=== PATIENT | male | born 1995 | race American Indian/Alaskan Native ===

== ENCOUNTER 2017-05-27 10:15 | Emergency (ER) | payer SELFPAY ==
[2017-05-27 11:07] VITALS: BP 111/78
[2017-05-27 11:56] LABS: Basophils # (Auto) 0.1 K/mm3 (0.0-0.1); Basophils % (Auto) 1.1 % (0.0-1.8); Eosinophils # (Auto) 0.1 K/mm3 (0.0-0.4); Eosinophils % (Auto) 1.9 % (0.0-4.3); Hematocrit 43.4 % (35.5-45.6); Hemoglobin 14.4 gm/dl (11.8-15.2); Lymphocytes # (Auto) 1.2 K/mm3 (1.2-5.4); Lymphocytes % (Auto) 22.6 % (13.4-35.0); Mean Corpuscular HGB Conc 33 % (32-34); Mean Corpuscular Hemoglobin 29 pg (28-32); Mean Corpuscular Volume 87 fl (84-94); Monocytes # (Auto) 0.6 K/mm3 (0.0-0.8); Monocytes % (Auto) 11.1 % (0.0-7.3); Platelet Count 278 K/mm3 (140-440); Red Blood Count 5.01 M/mm3 (3.65-5.03)
[2017-05-27 12:10] LABS: Alanine Aminotransferase 13 units/L (7-56); Albumin 4.3 g/dL (3.9-5); BUN/Creatinine Ratio 15; Blood Urea Nitrogen 12 mg/dL (9-20); Calcium 9.5 mg/dL (8.4-10.2); Hemolysis Index 11; Lipase 27 units/L (13-60)
[2017-05-27 14:28] LABS: Bilirubin,Urine SM (Negative); Blood,Urine NEG (Negative); Color,Urine Amber (Yellow); Mucus,Urine 3+ /HPF
[2017-05-27 14:29] LABS: Ictotest,Urine Negative (Negative)
== END 2017-05-27 14:15 | disposition left against medical advice (07) ==
LOC: ED 10:15
DX: R11.2 Nausea with vomiting, unspecified (principal); Z53.21 Procedure and treatment not carried out due to patient leaving prior to being seen by health care provider
CPT/HCPCS: 36415; 80053; 81001; 83690; 85025

== ENCOUNTER 2017-07-09 12:31 | Emergency (ER) | payer SELFPAY | END 2017-07-09 12:32 | disposition left against medical advice (07) | LOC: ED 12:31 | DX: R10.9 Unspecified abdominal pain (principal); Z53.21 Procedure and treatment not carried out due to patient leaving prior to being seen by health care provider ==

== ENCOUNTER 2017-09-02 03:46 | Inpatient (IN) | payer OTHER ==
[2017-09-02 04:42] LABS: Basophils # (Auto) 0.1 K/mm3 (0.0-0.1); Basophils % (Auto) 0.9 % (0.0-1.8); Eosinophils # (Auto) 0.2 K/mm3 (0.0-0.4); Eosinophils % (Auto) 2.8 % (0.0-4.3); Hematocrit 52.1 % (35.5-45.6); Hemoglobin 17.7 gm/dl (11.8-15.2); Lymphocytes # (Auto) 1.8 K/mm3 (1.2-5.4); Lymphocytes % (Auto) 29.6 % (13.4-35.0); Mean Corpuscular HGB Conc 34 % (32-34); Mean Corpuscular Hemoglobin 29 pg (28-32); Mean Corpuscular Volume 87 fl (84-94); Monocytes # (Auto) 0.7 K/mm3 (0.0-0.8); Monocytes % (Auto) 11.9 % (0.0-7.3); Platelet Count 368 K/mm3 (140-440); Red Blood Count 6.02 M/mm3 (3.65-5.03); Red Cell Distribution Width 13.3 % (13.2-15.2)
[2017-09-02] MEDS ORDERED: ZOFRAN IV ONE (05:05)
[2017-09-02] MEDS ORDERED: NACL 0.9% 1000 ML 1,000 ML IV ONE ×3 (05:05→11:04)
[2017-09-02 05:06] LABS: Alanine Aminotransferase 15 units/L (7-56); Albumin 4.9 g/dL (3.9-5); BUN/Creatinine Ratio 22; Blood Urea Nitrogen 20 mg/dL (9-20); Calcium 10.1 mg/dL (8.4-10.2); Hemolysis Index 10; Lipase 20 units/L (13-60)
[2017-09-02] MEDS ORDERED: K-DUR PO ONE (05:17)
[2017-09-02] MEDS ORDERED: PEPCID IV ONE (05:17)
[2017-09-02] MEDS ORDERED: REGLAN ONE (07:34)
[2017-09-02] MEDS ORDERED: REGLAN IV ONE (07:34)
--- NOTE | 2017-09-02 07:56 | Emergency Department Report ---
HPI - General Chief Complaint: Nausea/Vomiting/Diarrhea Time Seen by Provider: 09/02/17 07:26 - HPI HPI: Room 8 The patient is a 22-year-old male presenting with a chief complaint of nausea and vomiting. The patient states 2 weeks ago after eating a hotdog from and began having nausea and vomiting. The patient states she's been vomiting 10-15 times today he has abdominal soreness of his vomiting. The patient states she has not had a bowel movement in 2 weeks because he's been unable to eat. The patient states he went to [facility] and had an abdominal ultrasound, abdominal CT scan and abdominal x-ray performed which were all negative per patient. Patient denies dysuria. Patient denies sick contacts. The patient was administered Zofran prior to my evaluation states he still had nausea and vomiting. Location: Gastrointestinal system Duration: 2 weeks Quality: Vomiting Severity: Moderate Modifying factors: [see above] Context: [see above] Mode of transportation: Unknown ED Past Medical Hx - Past Medical History Previous Medical History?: No - Surgical History Past Surgical History?: No - Family History Family history: no significant - Social History Smoking Status: Never Smoker Substance Use Type: None (denies illicit drug use) - Medications Home Medications: Home Medications Medication Instructions Recorded Confirmed Last Taken Type Acetaminophen/Codeine [Tylenol #3] 1 tab PO Q6H PRN #15 tab 06/23/15 Unknown Rx methOCARBAMOL [Robaxin TAB] 500 mg PO BID #20 tab 06/23/15 Unknown Rx ED Review of Systems ROS: Stated complaint: CHEST PAIN,NAUSEA,VOMITING Other details as noted in HPI Constitutional: chills Eyes: denies: eye pain ENT: denies: throat pain Cardiovascular: denies: chest pain Gastrointestinal: abdominal pain (soreness from vomiting), nausea, vomiting Genitourinary: denies: dysuria Musculoskeletal: denies: back pain Neurological: denies: headache Physical Exam - Physical Exam Vital Signs: Vital Signs 09/02/17 09/02/17 09/02/17 04:07 04:41 04:45 Temperature 98.2 F Pulse Rate 117 H Respiratory 18 Rate Blood Pressure 125/87 O2 Sat by Pulse 100 100 99 Oximetry 09/02/17 09/02/17 09/02/17 05:00 05:15 05:30 Temperature Pulse Rate Respiratory Rate Blood Pressure 128/94 128/94 112/76 O2 Sat by Pulse 100 97 97 Oximetry 09/02/17 05:43 Temperature Pulse Rate Respiratory 20 Rate Blood Pressure O2 Sat by Pulse Oximetry Physical Exam: GENERAL: The patient is well-developed well-nourished male lying on stretcher not appearing to be in acute distress. [] HEENT: Normocephalic. Atraumatic. Extraocular motions are intact. Patient has moist mucous membranes. NECK: Supple. Trachea midline CHEST/LUNGS: Clear to auscultation. There is no respiratory distress noted. HEART/CARDIOVASCULAR: Regular. There is no tachycardia. There is no gallop rub or murmur. ABDOMEN: Abdomen is soft, mild discomfort to palpation in the midepigastric and left upper quadrant. Patient has normal bowel sounds. There is no abdominal distention. SKIN: There is no rash. There is no edema. There is no diaphoresis. NEURO: The patient is awake, alert, and oriented. The patient is cooperative. The patient has normal speech MUSCULOSKELETAL: There is no evidence of acute injury. ED Course Vital Signs 09/02/17 09/02/17 09/02/17 04:07 04:41 04:45 Temperature 98.2 F Pulse Rate 117 H Respiratory 18 Rate Blood Pressure 125/87 O2 Sat by Pulse 100 100 99 Oximetry 09/02/17 09/02/17 09/02/17 05:00 05:15 05:30 Temperature Pulse Rate Respiratory Rate Blood Pressure 128/94 128/94 112/76 O2 Sat by Pulse 100 97 97 Oximetry 09/02/17 05:43 Temperature Pulse Rate Respiratory 20 Rate Blood Pressure O2 Sat by Pulse Oximetry - Reevaluation(s) Reevaluation #1: 09/02/17 11:03 Patient states he still feels nauseous and is pretty sure it is going to have to vomit soon despite multiple medications. Will admit the patient to the hospital ED Medical Decision Making - Lab Data Result diagrams: 09/02/17 04:34 09/02/17 04:34 Laboratory Tests 09/02/17 09/02/17 09/02/17 04:34 04:34 05:00 WBC 6.1 RBC 6.02 H Hgb 17.7 H Hct 52.1 H MCV 87 MCH 29 MCHC 34 RDW 13.3 Plt Count 368 Lymph % (Auto) 29.6 [place] % (Auto) 11.9 H Eos % (Auto) 2.8 Baso % (Auto) 0.9 Lymph # 1.8 [place] # 0.7 Eos # 0.2 Baso # 0.1 Seg Neutrophils % 54.8 Seg Neutrophils # 3.4 Sodium 134 L Potassium 3.2 L Chloride 88.2 L Carbon Dioxide 29 Anion Gap 20 BUN 20 Creatinine 0.9 Estimated GFR > 60 BUN/Creatinine Ratio 22 Glucose 129 H Calcium 10.1 Magnesium 2.40 H Total Bilirubin 1.70 H AST 13 ALT 15 Alkaline Phosphatase 58 Total Protein 8.5 H Albumin 4.9 Albumin/Globulin Ratio 1.4 Lipase 20 Urine Color Urine Turbidity Urine pH Ur Specific [place] Urine Protein Urine Glucose (UA) Urine Ketones Urine Blood Urine Nitrite Urine Bilirubin Urine Ictotest Urine Urobilinogen Ur Leukocyte Esterase Urine WBC (Auto) Urine RBC (Auto) Urine Mucus 09/02/17 08:25 WBC RBC Hgb Hct MCV MCH MCHC RDW Plt Count Lymph % (Auto) [place] % (Auto) Eos % (Auto) Baso % (Auto) Lymph # [place] # Eos # Baso # Seg Neutrophils % Seg Neutrophils # Sodium Potassium Chloride Carbon Dioxide Anion Gap BUN Creatinine Estimated GFR BUN/Creatinine Ratio Glucose Calcium Magnesium Total Bilirubin AST ALT Alkaline Phosphatase Total Protein Albumin Albumin/Globulin Ratio Lipase Urine Color [place] Urine Turbidity Clear Urine pH 6.0 Ur Specific [place] 1.034 H Urine Protein 100 mg/dl Urine Glucose (UA) Neg Urine Ketones 20 Urine Blood Neg Urine Nitrite Neg Urine Bilirubin Sm Urine Ictotest Negative Urine Urobilinogen 4.0 Ur Leukocyte Esterase Tr Urine WBC (Auto) 6.0 Urine RBC (Auto) 4.0 Urine Mucus 3+ - EKG Data -: EKG Interpreted by Me EKG shows normal: sinus rhythm Rate: tachycardia (102 bpm) - EKG Data When compared to previous EKG there are: previous EKG unavailable Interpretation: other (no ischemic changes seen) - Medical Decision Making Patient has already had a CT scan of the abdomen, ultrasound and plain film x- ray performed for the above complaints. These were reportedly negative and I currently do not feel repeat imaging is warranted or would be useful at this time. - Differential Diagnosis gastritis, peptic ulcer disease, intractable nausea and vomiting Critical care attestation.: If time is entered above; I have spent that time in minutes in the direct care of this critically ill patient, excluding procedure time. ED Disposition Clinical Impression: Intractable nausea and vomiting, Dehydration Disposition: DC09 OP ADMIT IP TO THIS HOSP Is pt being admited?: Yes Does the pt Need Aspirin: No Condition: Fair Referrals: PRIMARY CARE, [Primary Care Provider] - 3-5 Days Time of Disposition: 11:04 (hospitalist paged (Dr Knowles))
[2017-09-02 09:13] LABS: Bilirubin,Urine SM (Negative); Blood,Urine NEG (Negative); Color,Urine Amber (Yellow); Mucus,Urine 3+ /HPF
[2017-09-02] MEDS ORDERED: PHENERGAN PR ONE (09:14)
[2017-09-02 09:53] LABS: Ictotest,Urine Negative (Negative)
--- NOTE | 2017-09-02 18:32 | History and Physical Report ---
History of Present Illness Date of examination: 09/02/17 Date of admission: 09/02/17 12:23 Chief complaint: CC Vomiting for 2 weeks.Associated with Abd pain. History of present illness: LAC VIEUX: The patient is a 22-year-old male presenting with a chief complaint of nausea and vomiting. The patient states 2 weeks ago after eating a hotdog from [employer] began having nausea and vomiting. The patient states he's been vomiting 10-15 times and has abdominal soreness because of his vomiting. The patient states he has not had a bowel movement in 2 weeks because he's been unable to eat. The patient states he went to [facility] and had an abdominal ultrasound, abdominal CT scan and abdominal x-ray performed which were all negative per patient. Patient denies dysuria. Patient denies sick contacts. The patient was administered Zofran prior to my evaluation states he still had nausea and vomiting. Has persistent vomiting Location: Gastrointestinal system Duration: 2 weeks Quality: Vomiting Severity: Moderate Modifying factors: [see above] Context: [see above] Past Medical History Previous Medical History?: No Surgical History Past Surgical History?: No Family History Family history: no significant Social History Smoking Status: Never Smoker Substance Use Type: None (denies illicit drug use) - Medications Home Medications: Home Medications Medication Instructions Recorded Confirmed Last Taken Type Acetaminophen/Codeine [Tylenol #3] 1 tab PO Q6H PRN #15 tab 06/23/15 Unknown Rx methOCARBAMOL [Robaxin TAB] 500 mg PO BID #20 tab 06/23/15 Unknown Rx Review of Systems ROS: Stated complaint: CHEST PAIN,NAUSEA,VOMITING Other details as noted in HPI Constitutional: chills Eyes: denies: eye pain ENT: denies: throat pain Cardiovascular: denies: chest pain Gastrointestinal: abdominal pain (soreness from vomiting), nausea, vomiting X 10 to 14 times per day Genitourinary: denies: dysuria Musculoskeletal: denies: back pain Neurological: denies: headache 14 point review of systems done--otherwise negative Medications and Allergies Allergies Allergy/AdvReac Type Severity Reaction Status Date / Time No Known Allergies Allergy Unverified 06/22/15 18:00 Home Medications Medication Instructions Recorded Confirmed Last Taken Type Acetaminophen/Codeine [Tylenol #3] 1 tab PO Q6H PRN #15 tab 16 09/02/17 Unknown Rx methOCARBAMOL [Robaxin TAB] 500 mg PO BID #20 tab 06/23/15 09/02/17 Unknown Rx Exam - Physical Exam Narrative exam: lying in bed comfortably - Constitutional Vitals: Temp Pulse Resp BP Pulse Ox 100.1 F H 80 20 124/78 98 09/02/17 17:18 09/02/17 17:18 09/02/17 17:18 09/02/17 17:18 09/02/17 17:18 General appearance: Present: no acute distress, well-nourished - EENT Eyes: Present: PERRL ENT: hearing intact, clear oral mucosa - Neck Neck: Present: supple, normal ROM - Respiratory Respiratory effort: normal Respiratory: bilateral: CTA - Cardiovascular Heart rate: 102 Rhythm: regular Heart Sounds: Present: S1 & S2. Absent: rub, click - Extremities Extremities: no ischemia, pulses intact, pulses symmetrical, No edema Peripheral Pulses: within normal limits - Abdominal General gastrointestinal: Present: soft, non-tender, non-distended, normal bowel sounds Male genitourinary: Present: normal - Rectal Rectal Exam: deferred - Integumentary Integumentary: Present: clear, warm, dry - Musculoskeletal Musculoskeletal: gait normal, strength equal bilaterally - Psychiatric Psychiatric: appropriate mood/affect, intact judgment & insight - Neurologic Neurologic: CNII-XII intact, moves all extremities - Allied Health Allied health notes reviewed: nursing, case management Results - Labs CBC & Chem 7: 09/02/17 04:34 09/02/17 04:34 Labs: Laboratory Last Values WBC 6.1 K/mm3 (4.5-11.0) 09/02/17 04:34 RBC 6.02 M/mm3 (3.65-5.03) H 09/02/17 04:34 Hgb 17.7 gm/dl (11.8-15.2) H 09/02/17 04:34 Hct 52.1 % (35.5-45.6) H 09/02/17 04:34 MCV 87 fl (84-94) 09/02/17 04:34 MCH 29 pg (28-32) 09/02/17 04:34 MCHC 34 % (32-34) 09/02/17 04:34 RDW 13.3 % (13.2-15.2) 09/02/17 04:34 Plt Count 368 K/mm3 (140-440) 09/02/17 04:34 Lymph % (Auto) 29.6 % (13.4-35.0) 09/02/17 04:34 [place] % (Auto) 11.9 % (0.0-7.3) H 09/02/17 04:34 Eos % (Auto) 2.8 % (0.0-4.3) 09/02/17 04:34 Baso % (Auto) 0.9 % (0.0-1.8) 09/02/17 04:34 Lymph # 1.8 K/mm3 (1.2-5.4) 09/02/17 04:34 [place] # 0.7 K/mm3 (0.0-0.8) 09/02/17 04:34 Eos # 0.2 K/mm3 (0.0-0.4) 09/02/17 04:34 Baso # 0.1 K/mm3 (0.0-0.1) 09/02/17 04:34 Seg Neutrophils % 54.8 % (40.0-70.0) 09/02/17 04:34 Seg Neutrophils # 3.4 K/mm3 (1.8-7.7) 09/02/17 04:34 Sodium 134 mmol/L (137-145) L 09/02/17 04:34 Potassium 3.2 mmol/L (3.6-5.0) L 09/02/17 04:34 Chloride 88.2 mmol/L (98-107) L 09/02/17 04:34 Carbon Dioxide 29 mmol/L (22-30) 09/02/17 04:34 Anion Gap 20 mmol/L 09/02/17 04:34 BUN 20 mg/dL (9-20) 09/02/17 04:34 Creatinine 0.9 mg/dL (0.8-1.5) 09/02/17 04:34 Estimated GFR > 60 ml/min 09/02/17 04:34 BUN/Creatinine Ratio 22 % 09/02/17 04:34 Glucose 129 mg/dL (75-100) H 09/02/17 04:34 Calcium 10.1 mg/dL (8.4-10.2) 09/02/17 04:34 Magnesium 2.40 mg/dL (1.7-2.3) H 09/02/17 05:00 Total Bilirubin 1.70 mg/dL (0.1-1.2) H 09/02/17 04:34 AST 13 units/L (5-40) 09/02/17 04:34 ALT 15 units/L (7-56) 09/02/17 04:34 Alkaline Phosphatase 58 units/L (35-129) 09/02/17 04:34 Total Protein 8.5 g/dL (6.3-8.2) H 09/02/17 04:34 Albumin 4.9 g/dL (3.9-5) 09/02/17 04:34 Albumin/Globulin Ratio 1.4 % 09/02/17 04:34 Lipase 20 units/L (13-60) 09/02/17 04:34 Urine Color Maureen (Yellow) 09/02/17 08:25 Urine Turbidity Clear (Clear) 09/02/17 08:25 Urine pH 6.0 (5.0-7.0) 09/02/17 08:25 Ur Specific [place] 1.034 (1.003-1.030) H 09/02/17 08:25 Urine Protein 100 mg/dl mg/dL (Negative) 09/02/17 08:25 Urine Glucose (UA) Neg mg/dL (Negative) 09/02/17 08:25 Urine Ketones 20 mg/dL (Negative) 09/02/17 08:25 Urine Blood Neg (Negative) 09/02/17 08:25 Urine Nitrite Neg (Negative) 09/02/17 08:25 Urine Bilirubin Sm (Negative) 09/02/17 08:25 Urine Ictotest Negative (Negative) 09/02/17 08:25 Urine Urobilinogen 4.0 mg/dL (<2.0) 09/02/17 08:25 Ur Leukocyte Esterase Tr (Negative) 09/02/17 08:25 Urine WBC (Auto) 6.0 /HPF (0.0-6.0) 09/02/17 08:25 Urine RBC (Auto) 4.0 /HPF (0.0-6.0) 09/02/17 08:25 Urine Mucus 3+ /HPF 09/02/17 08:25 Assessment and Plan Advance Directives: Yes (Full code) VTE prophylaxis?: Chemical Plan of care discussed with patient/family: Yes - Patient Problems (1) Dehydration Current Visit: Yes Status: Acute Plan to address problem: IV Fluids for now Patient has hemoconcentration and is volume depleted (2) Intractable nausea and vomiting Current Visit: Yes Status: Acute Qualifiers: Vomiting type: unspecified Qualified Code(s): R11.2 - Nausea with vomiting , unspecified Plan to address problem: Etiology unclear Imaging studies ordered Patient had imaging studies at [facility] and apparently normal IV protonix 40 mg q12h IV Zofran 4 mg q 3h prn (3) Acute gastritis without bleeding Current Visit: Yes Status: Acute Qualifiers: Gastritis type: unspecified gastritis Qualified Code(s): K29.00 - Acute gastritis without bleeding Plan to address problem: GI consuulted Possible EGD IV Protonix and IV Zofran (4) Hypokalemia Current Visit: Yes Status: Acute Plan to address problem: Supplemented (5) DVT prophylaxis Current Visit: Yes Status: Acute Plan to address problem: Lovenox 40 mg SQ qd
[2017-09-02] MEDS ORDERED: ZOFRAN IV PRN ×2 (19:12→19:34)
[2017-09-02] MEDS ORDERED: SODIUM CHLORIDE FLUSH SYRINGE 10 ML IV PRN (19:12)
[2017-09-02] MEDS ORDERED: TYLENOL PO PRN (19:12)
[2017-09-02] MEDS ORDERED: MORPHINE IV PRN (19:12)
[2017-09-02] MEDS ORDERED: PHENERGAN PR PRN (19:42)
--- NOTE | 2017-09-02 20:14 | XRay Report ---
FINAL REPORT PROCEDURE: XR ABDOMEN 2V TECHNIQUE: Abdominal series, including supine and upright AP views. HISTORY: Abd pain and vomiting COMPARISON: No prior studies are available for comparison. FINDINGS: Bowel gas pattern:Nonobstructive . Masses or calcifications:None . Bony structures:No significant abnormality . Pneumoperitoneum:None . Other:No significant findings . IMPRESSION: No acute abnormality.
[2017-09-02] MEDS: D5NS 1,000 ML IV SCH (20:35)
[2017-09-02] MEDS: KCL 10MEQ/100ML 10 MEQ/100 ML BAG IV SCH (20:35)
[2017-09-02] MEDS: SODIUM CHLORIDE FLUSH SYRINGE 10 ML IV SCH (22:15)
[2017-09-02] MEDS: PROTONIX IV SCH (22:15)
--- NOTE | 2017-09-03 00:01 | Cat Scan Report ---
FINAL REPORT PROCEDURE: CT ABDOMEN PELVIS WO CON TECHNIQUE: Computerized axial tomography of the abdomen and pelvis was performed without intravenous contrast. HISTORY: Abd pain and vomiting COMPARISON: No prior studies are available for comparison. FINDINGS: Visualized lower thorax: No significant abnormality. Liver: Normal size and attenuation. Spleen: Normal size and attenuation. Gallbladder and biliary system: Normal. Pancreas: Normal. Adrenals: Normal. Kidneys: Normal. No stones or hydronephrosis. GI tract: Normal. No dilated loops of large or small bowel. The appendix is normal. Lymph nodes and mesentery: Normal. Vasculature: Normal. Bladder: Normal. Reproductive organs: Normal. Peritoneum: No free fluid. Musculoskeletal structures: No significant abnormality. Other: None. IMPRESSION: Normal examination of the abdomen and pelvis.
[2017-09-03] MEDS: KCL 10MEQ/100ML 10 MEQ/100 ML BAG IV SCH ×3 (00:21→02:14)
[2017-09-03 09:18] LABS: Basophils # (Auto) 0.1 K/mm3 (0.0-0.1); Basophils % (Auto) 1.8 % (0.0-1.8); Eosinophils # (Auto) 0.2 K/mm3 (0.0-0.4); Eosinophils % (Auto) 5.3 % (0.0-4.3); Hematocrit 39.5 % (35.5-45.6); Hemoglobin 13.1 gm/dl (11.8-15.2); Lymphocytes # (Auto) 1.7 K/mm3 (1.2-5.4); Lymphocytes % (Auto) 41.2 % (13.4-35.0); Mean Corpuscular HGB Conc 33 % (32-34); Mean Corpuscular Hemoglobin 29 pg (28-32); Mean Corpuscular Volume 87 fl (84-94); Monocytes # (Auto) 0.6 K/mm3 (0.0-0.8); Monocytes % (Auto) 13.5 % (0.0-7.3); Platelet Count 225 K/mm3 (140-440); Red Blood Count 4.57 M/mm3 (3.65-5.03); Red Cell Distribution Width 13.2 % (13.2-15.2)
[2017-09-03] MEDS: D5NS 1,000 ML IV SCH ×2 (09:46→18:36)
[2017-09-03 09:48] LABS: BUN/Creatinine Ratio 16; Blood Urea Nitrogen 11 mg/dL (9-20)
[2017-09-03] MEDS: PROTONIX IV SCH ×2 (09:48→23:19)
[2017-09-03 09:49] LABS: Alanine Aminotransferase 10 units/L (7-56); Albumin 3.6 g/dL (3.9-5); Hemolysis Index 6
[2017-09-03] MEDS: POTASSIUM CHLORIDE PO SCH ×2 (11:15→15:20)
[2017-09-03] MEDS: SODIUM CHLORIDE FLUSH SYRINGE 10 ML IV SCH ×2 (11:16→23:20)
--- NOTE | 2017-09-03 14:46 | Progress Note ---
Assessment and Plan Assessment and plan: Intractable nausea and vomiting, Etiology unclear Zofran iv prn GI Physician consulted Acute gastroenteritis,possible Continue iv fluids Hypokalemia. Replace and recheck Dehydration. Continue iv fluid D5NS at 100ml/hr Full code status History Interval history: nausea and vomiting x 2 weeks no fever Hospitalist Physical - Physical exam Narrative exam: Gen : Not in acute distress, lying in bed HEENT:Normocephalic, atraumatic Neck: supple, No JVD Lungs: Clear to auscultation, No crackles or wheeze, Heart :S1 and S2 reg, no murmurs, rubs or gallop Abd:soft, non tender, non distended, normal bowel sounds Ext: No edema, no clubbing, no cyanosis Neuro: Awake,alert,oriented x 3, no focal signs Psych: Normal mood - Constitutional Vitals: Temp Pulse Resp BP Pulse Ox 99.2 F 73 15 111/75 97 09/03/17 08:04 09/03/17 08:04 09/03/17 08:04 09/03/17 08:04 09/03/17 08:04 General appearance: Present: no acute distress, well-nourished Results - Labs CBC & Chem 7: 09/03/17 08:37 09/03/17 08:37 Labs: Laboratory Last Values WBC 4.1 K/mm3 (4.5-11.0) L 09/03/17 08:37 RBC 4.57 M/mm3 (3.65-5.03) 09/03/17 08:37 Hgb 13.1 gm/dl (11.8-15.2) D 09/03/17 08:37 Hct 39.5 % (35.5-45.6) D 09/03/17 08:37 MCV 87 fl (84-94) 09/03/17 08:37 MCH 29 pg (28-32) 09/03/17 08:37 MCHC 33 % (32-34) 09/03/17 08:37 RDW 13.2 % (13.2-15.2) 09/03/17 08:37 Plt Count 225 K/mm3 (140-440) 09/03/17 08:37 Lymph % (Auto) 41.2 % (13.4-35.0) H 09/03/17 08:37 [place] % (Auto) 13.5 % (0.0-7.3) H 09/03/17 08:37 Eos % (Auto) 5.3 % (0.0-4.3) H 09/03/17 08:37 Baso % (Auto) 1.8 % (0.0-1.8) 09/03/17 08:37 Lymph # 1.7 K/mm3 (1.2-5.4) 09/03/17 08:37 [place] # 0.6 K/mm3 (0.0-0.8) 09/03/17 08:37 Eos # 0.2 K/mm3 (0.0-0.4) 09/03/17 08:37 Baso # 0.1 K/mm3 (0.0-0.1) 09/03/17 08:37 Seg Neutrophils % 38.2 % (40.0-70.0) L 09/03/17 08:37 Seg Neutrophils # 1.6 K/mm3 (1.8-7.7) L 09/03/17 08:37 Sodium 137 mmol/L (137-145) 09/03/17 08:37 Potassium 3.3 mmol/L (3.6-5.0) L 09/03/17 08:37 Chloride 98.0 mmol/L (98-107) 09/03/17 08:37 Carbon Dioxide 29 mmol/L (22-30) 09/03/17 08:37 Anion Gap 13 mmol/L 09/03/17 08:37 BUN 11 mg/dL (9-20) 09/03/17 08:37 Creatinine 0.7 mg/dL (0.8-1.5) L 09/03/17 08:37 Estimated GFR > 60 ml/min 09/03/17 08:37 BUN/Creatinine Ratio 16 % 09/03/17 08:37 Glucose 111 mg/dL (75-100) H 09/03/17 08:37 Hemoglobin A1c 5.5 % (4-6) 09/02/17 19:24 Calcium 9.0 mg/dL (8.4-10.2) 09/03/17 08:37 Magnesium 2.40 mg/dL (1.7-2.3) H 09/02/17 05:00 Total Bilirubin 1.90 mg/dL (0.1-1.2) H 09/03/17 08:37 AST 10 units/L (5-40) 09/03/17 08:37 ALT 10 units/L (7-56) 09/03/17 08:37 Alkaline Phosphatase 43 units/L (35-129) 09/03/17 08:37 Total Protein 6.1 g/dL (6.3-8.2) L D 09/03/17 08:37 Albumin 3.6 g/dL (3.9-5) L 09/03/17 08:37 Albumin/Globulin Ratio 1.4 % 09/03/17 08:37 Lipase 20 units/L (13-60) 09/02/17 04:34 Urine Color [place]ureen (Yellow) 09/02/17 08:25 Urine Turbidity Clear (Clear) 09/02/17 08:25 Urine pH 6.0 (5.0-7.0) 09/02/17 08:25 Ur Specific [place] 1.034 (1.003-1.030) H 09/02/17 08:25 Urine Protein 100 mg/dl mg/dL (Negative) 09/02/17 08:25 Urine Glucose (UA) Neg mg/dL (Negative) 09/02/17 08:25 Urine Ketones 20 mg/dL (Negative) 09/02/17 08:25 Urine Blood Neg (Negative) 09/02/17 08:25 Urine Nitrite Neg (Negative) 09/02/17 08:25 Urine Bilirubin Sm (Negative) 09/02/17 08:25 Urine Ictotest Negative (Negative) 09/02/17 08:25 Urine Urobilinogen 4.0 mg/dL (<2.0) 09/02/17 08:25 Ur Leukocyte Esterase Tr (Negative) 09/02/17 08:25 Urine WBC (Auto) 6.0 /HPF (0.0-6.0) 09/02/17 08:25 Urine RBC (Auto) 4.0 /HPF (0.0-6.0) 09/02/17 08:25 Urine Mucus 3+ /HPF 09/02/17 08:25
--- NOTE | 2017-09-03 14:53 | Gastroenterology Consultation ---
Addendum entered and electronically signed by PAOLA ZHANG NP 09/03/17 15: 18: Will order HIDA scan to r/o biliary process. Original Note: <PAOLA ZHANG - Last Filed: 09/03/17 15:09> History of Present Illness - Reason for Consult Consult date: 09/03/17 persistent vomiting Requesting physician: JOSE JUAN HONG - History of Present Illness Patient is a 22 y/o male with no significant PMH who presented to ED with c/o persistent N/V x 2 weeks after eating a hotdog from . He was recently evaluated at [facility] for symptoms with abd U/S, CT, and abd X-ray negative. He admits to epigastric pain, fever, and recent wt loss associated with currently symptoms but denies CP, SOB, signs of bleeding, diarrhea, or constipation. Exacerbating factors include PO intake and movement. No alleviating factors. No ill contacts or travel. No NSAID use or previous EGD. Past History Past Medical History: No medical history Past Surgical History: No surgical history Social history: denies: smoking, alcohol abuse Family history: no significant family history Medications and Allergies Allergies Allergy/AdvReac Type Severity Reaction Status Date / Time No Known Allergies Allergy Unverified 06/22/15 18:00 Home Medications Medication Instructions Recorded Confirmed Last Taken Type Acetaminophen/Codeine [Tylenol #3] 1 tab PO Q6H PRN #15 tab 06/23/15 09/02/17 Unknown Rx methOCARBAMOL [Robaxin TAB] 500 mg PO BID #20 tab 06/23/15 09/02/17 Unknown Rx Active Meds: Active Medications Acetaminophen (Tylenol) 650 mg PO Q4H PRN PRN Reason: Pain MILD(1-3)/Fever >100.5/GREEN Dextrose/Sodium Chloride (D5ns) 1,000 mls @ 100 mls/hr IV DIRECT [facility]WEY Last Admin: 09/03/17 09:46 Dose: 100 mls/hr Morphine Sulfate (Morphine) 2 mg IV Q4H PRN PRN Reason: Pain, Moderate (4-6) Ondansetron HCl (Zofran) 4 mg IV Q3H PRN PRN Reason: Nausea And Vomiting Last Admin: 09/03/17 09:48 Dose: 4 mg Pantoprazole Sodium (Protonix) 40 mg IV BID [facility] Last Admin: 09/03/17 09:48 Dose: 40 mg Promethazine HCl (Phenergan) 25 mg MS Q6H PRN PRN Reason: Nausea And Vomiting Sodium Chloride (Sodium Chloride Flush Syringe 10 Ml) 10 ml IV BID [facility] Last Admin: 09/03/17 11:16 Dose: 10 ml Sodium Chloride (Sodium Chloride Flush Syringe 10 Ml) 10 ml IV PRN PRN PRN Reason: LINE FLUSH Review of Systems - Review of Systems All systems: negative Constitutional: weight loss, fever Gastrointestinal: abdominal pain (epigastric pain), nausea, vomiting Exam - Constitutional Vital Signs: Temp Pulse Resp BP Pulse Ox 99.2 F 73 15 111/75 97 09/03/17 08:04 09/03/17 08:04 09/03/17 08:04 09/03/17 08:04 09/03/17 08:04 General appearance: no acute distress - EENT Eyes: PERRL, EOM intact ENT: hearing intact - Respiratory Respiratory: bilateral: CTA - Cardiovascular Rhythm: regular Heart Sounds: Present: S1 & S2 - Gastrointestinal General gastrointestinal: Present: soft, tender (epigastric area), non-distended , normal bowel sounds - Neurologic Neurological: alert and oriented x3 - Labs CBC & Chem 7: 09/03/17 08:37 09/03/17 08:37 Lab Results: Laboratory Results - last 24 hr 09/02/17 09/03/17 09/03/17 19:24 08:37 08:37 WBC 4.1 L RBC 4.57 Hgb 13.1 D Hct 39.5 D MCV 87 MCH 29 MCHC 33 RDW 13.2 Plt Count 225 Lymph % (Auto) 41.2 H [place] % (Auto) 13.5 H Eos % (Auto) 5.3 H Baso % (Auto) 1.8 Lymph # 1.7 [place] # 0.6 Eos # 0.2 Baso # 0.1 Seg Neutrophils % 38.2 L Seg Neutrophils # 1.6 L Sodium 137 Potassium 3.3 L Chloride 98.0 Carbon Dioxide 29 Anion Gap 13 BUN 11 Creatinine 0.7 L Estimated GFR > 60 BUN/Creatinine Ratio 16 Glucose 111 H Hemoglobin A1c 5.5 Calcium 9.0 Total Bilirubin 1.90 H AST 10 ALT 10 Alkaline Phosphatase 43 Total Protein 6.1 L D Albumin 3.6 L Albumin/Globulin Ratio 1.4 Assessment and Plan 1.persistent N/V 2.epigastric pain -Temp 99.3 -WBC-WNL -CT and abd x-ray negative -etiology unclear- possible gastroenteritis vs other -will schedule for EGD in am for further evaluation -clear liquids today then NPO after MN -limits narcotics for this may exacerbate symptoms, consider trial of Ativan -continue PPI and supportive care -will follow <ELISABETH AYOUB - Last Filed: 09/03/17 16:07> History of Present Illness - History of Present Illness Of note, pt states he had similar symptoms several months ago, that resolved spontaneously. Complains of epigastric burning discomfort. Medications and Allergies Active Meds: Active Medications Acetaminophen (Tylenol) 650 mg PO Q4H PRN PRN Reason: Pain MILD(1-3)/Fever >100.5/GREEN Dextrose/Sodium Chloride (D5ns) 1,000 mls @ 100 mls/hr IV DIRECT [facility] Last Admin: 09/03/17 09:46 Dose: 100 mls/hr Lorazepam (Ativan) 0.5 mg IV Q8H PRN PRN Reason: Nausea Ondansetron HCl (Zofran) 4 mg IV Q3H PRN PRN Reason: Nausea And Vomiting Last Admin: 09/03/17 09:48 Dose: 4 mg Pantoprazole Sodium (Protonix) 40 mg IV BID [facility] Last Admin: 09/03/17 09:48 Dose: 40 mg Promethazine HCl (Phenergan) 25 mg MS Q6H PRN PRN Reason: Nausea And Vomiting Sodium Chloride (Sodium Chloride Flush Syringe 10 Ml) 10 ml IV BID [facility] Last Admin: 09/03/17 11:16 Dose: 10 ml Sodium Chloride (Sodium Chloride Flush Syringe 10 Ml) 10 ml IV PRN PRN PRN Reason: LINE FLUSH Exam - Constitutional Vital Signs: Temp Pulse Resp BP Pulse Ox 99.3 F 71 15 129/75 100 09/03/17 14:47 09/03/17 14:47 09/03/17 14:47 09/03/17 14:47 09/03/17 14:47 - Labs CBC & Chem 7: 09/03/17 08:37 09/03/17 08:37 Lab Results: Laboratory Results - last 24 hr 09/02/17 09/03/17 09/03/17 19:24 08:37 08:37 WBC 4.1 L RBC 4.57 Hgb 13.1 D Hct 39.5 D MCV 87 MCH 29 MCHC 33 RDW 13.2 Plt Count 225 Lymph % (Auto) 41.2 H [place] % (Auto) 13.5 H Eos % (Auto) 5.3 H Baso % (Auto) 1.8 Lymph # 1.7 [place] # 0.6 Eos # 0.2 Baso # 0.1 Seg Neutrophils % 38.2 L Seg Neutrophils # 1.6 L Sodium 137 Potassium 3.3 L Chloride 98.0 Carbon Dioxide 29 Anion Gap 13 BUN 11 Creatinine 0.7 L Estimated GFR > 60 BUN/Creatinine Ratio 16 Glucose 111 H Hemoglobin A1c 5.5 Calcium 9.0 Total Bilirubin 1.90 H AST 10 ALT 10 Alkaline Phosphatase 43 Total Protein 6.1 L D Albumin 3.6 L Albumin/Globulin Ratio 1.4 Assessment and Plan will also get HIDA with CCK. Etiology unclear, and may be functional in origin , but appears to be significant given ketones in urine. Will r/o biliary dyskinesia as well. Pt denies use of illicit substances.
[2017-09-03] MEDS ORDERED: ATIVAN IV PRN (15:19)
[2017-09-04] MEDS: D5NS 1,000 ML IV SCH (03:38)
[2017-09-04] MEDS ORDERED: KINEVAC IV ONE ×2 (07:45→07:50)
[2017-09-04] MEDS ORDERED: WATER FOR INJ (PF) 10 ML ONE (07:46)
[2017-09-04] MEDS ORDERED: WATER FOR INJ (PF) IV ONE (07:51)
[2017-09-04 07:54] LABS: Hematocrit 38.6 % (35.5-45.6); Hemoglobin 12.9 gm/dl (11.8-15.2); Mean Corpuscular HGB Conc 33 % (32-34); Mean Corpuscular Hemoglobin 29 pg (28-32); Mean Corpuscular Volume 88 fl (84-94); Platelet Count 235 K/mm3 (140-440); Red Blood Count 4.38 M/mm3 (3.65-5.03); Red Cell Distribution Width 13.1 % (13.2-15.2)
[2017-09-04 08:53] LABS: Alanine Aminotransferase 8 units/L (7-56); Albumin 3.7 g/dL (3.9-5); BUN/Creatinine Ratio 7; Blood Urea Nitrogen 5 mg/dL (9-20); Calcium 8.9 mg/dL (8.4-10.2); Hemolysis Index 4
--- NOTE | 2017-09-04 09:02 | Nuclear Medicine Report ---
HEPATOBILIARY SCAN: History: Nausea and vomiting. Following the injection of the radionuclide, serial scanning was obtained over the right upper quadrant. Initial imaging of the liver demonstrates a relatively normal activity pattern. Progressive concentration of the radionuclide in the bile ducts, with filling of both the gallbladder and small bowel, is identified within a normal time period. The gallbladder ejection fraction is mildly decreased measuring 24%. The patient reports new pain and cramps following the infusion of CCK. IMPRESSION: The cystic duct is patent. Normal biliary to bowel transit time. Mildly decreased gallbladder ejection fraction consistent with biliary dyskinesia.
[2017-09-04] MEDS: PROTONIX IV SCH (09:10)
[2017-09-04] MEDS ORDERED: NACL 0.9% 1000 ML 1,000 ML ONE (09:16)
--- NOTE | 2017-09-04 10:00 | Anesthesia Day of Surgery ---
Anesthesia Day of Surgery - Day of Surgery Patient Examined: Yes Patient H&P Reviewed: Yes Patient is NPO: Yes Beta Blockers: No
--- NOTE | 2017-09-04 10:01 | Anesthesia Consultation ---
Anesthesia Consult and Med Hx - Airway Anesthetic Teeth Evaluation: Good ROM Head & Neck: Adequate Mental/Hyoid Distance: Adequate Mallampati Class: Class II Intubation Access Assessment: Probably Good - Pulmonary Exam CTA: Yes - Cardiac Exam Cardiac Exam: No Murmur - Pre-Operative Health Status ASA Pre-Surgery Classification: ASA1, ASA3 Proposed Anesthetic Plan: MAC
[2017-09-04] MEDS: NACL 0.9% 1000 ML 1,000 ML IV SCH ×2 (10:07→23:28)
[2017-09-04] MEDS ORDERED: DIPRIVAN 10 MG/ML IV ONE (10:09)
[2017-09-04] MEDS ORDERED: VERSED ONE (10:09)
--- NOTE | 2017-09-04 11:34 | Post Operative Note ---
Pre-op diagnosis: Epigastric pain, N/V Post-op diagnosis: other (Yani esophagitis, antral deformity) Findings: 1. Scattered small white plaques throughout esophagus, biopsied. 2. 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 Biopsied. 3. Otherwise normal EGD. Procedure: EGD with biopsy Anesthesia: MAC Surgeon: ELISABETH AYOUB Estimated blood loss: none Pathology: list (1. Antrum 2. Esophagus) Specimen disposition: to lab Condition: stable Disposition: floor (1. Surgical evaluation for biliary dyskinesia - GBEF = 24% . 2. Empiric Diflucan 3. F/u pathology)
--- NOTE | 2017-09-04 12:26 | Operative Report ---
PROCEDURE: Upper endoscopy with biopsy. PREOPERATIVE DIAGNOSIS: Epigastric pain and nausea. 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 SEDATION: MAC by Anesthesia. HISTORY: The patient is a 22-year-old man who presents with recurrent problems with epigastric pain, nausea, and vomiting. He has had an extensive evaluation at another hospital and symptoms persist. He has not responded to proton pump inhibitors. Procedure, indications, risks, and benefits were explained and consent was obtained. The patient was placed in left lateral decubitus position and sedated. RateSetter video upper endoscope was passed through the mouth and oropharynx into the descending duodenum. Scope was then gradually withdrawn with close inspection of the mucosa. FINDINGS: 1. Esophagus had small scattered white plaques all throughout it consistent with Yani. Biopsies were obtained. 2. Normal Z-line at 42 cm from the incisors. 3. Gastric antrum had an 8 mm punched-out benign-appearing area consistent with the a pancreatic rest. There was no evidence of ulceration or inflammation. A biopsy was obtained. 4. Remainder of gastric antrum, fundus, body, and cardia are normal appearing. 5. Normal-appearing duodenal bulb and duodenum. The patient tolerated the procedure well without immediate complication. IMPRESSION: 1. Esophagitis consistent with Yani -- biopsies obtained. 2. Antral deformity consistent with pancreatic rest, and appears to be benign. Biopsies obtained. 3. Otherwise, normal upper endoscopy. PLAN: 1. Empiric treatment of Yani. 2. Follow up pathology. 3. Surgical evaluation for biliary dyskinesia given gallbladder ejection fraction of 24% with reproduction of some of the symptoms. [facility]# [id number] HRC/NTS
[2017-09-04] MEDS: KCL 10MEQ/100ML 10 MEQ/100 ML BAG IV SCH ×2 (12:31→23:28)
[2017-09-04] MEDS: SODIUM CHLORIDE FLUSH SYRINGE 10 ML IV SCH ×2 (12:32→23:32)
--- NOTE | 2017-09-04 15:44 | Progress Note ---
Assessment and Plan Assessment and plan: Intractable nausea and vomiting, may be due too esophagitis or gall bladder disease Zofran iv prn Esophagitis, likely adri. Discussed with DI Physician. EGD done today shows esophagitis, likely adri. Start Fluconazole Start Protonix I discussed with patient. Will obtain HIV testing-he consents to HIV testing Biliary diskinesia on HIDA scan. May consult surgery Acute gastroenteritis,possible Continue iv fluids Hypokalemia. Potassium still low. Replete and recheck Replace and recheck Dehydration. Continue iv fluid D5NS at 100ml/hr Full code status History Interval history: nausea and vomiting x 2 weeks no fever EGD done today Hospitalist Physical - Physical exam Narrative exam: Gen : Not in acute distress, lying in bed HEENT:Normocephalic, atraumatic Neck: supple, No JVD Lungs: Clear to auscultation, No crackles or wheeze, Heart :S1 and S2 reg, no murmurs, rubs or gallop Abd:soft, non tender, non distended, normal bowel sounds Ext: No edema, no clubbing, no cyanosis Neuro: Awake,alert,oriented x 3, no focal signs Psych: Normal mood - Constitutional Vitals: Temp Pulse Resp BP Pulse Ox 98 F 70 19 121/71 99 09/04/17 11:15 09/04/17 11:45 09/04/17 11:45 09/04/17 11:45 09/04/17 11:45 General appearance: Present: no acute distress, well-nourished Results - Labs CBC & Chem 7: 09/04/17 06:16 09/04/17 06:16 Labs: Laboratory Last Values WBC 3.6 K/mm3 (4.5-11.0) L 09/04/17 06:16 RBC 4.38 M/mm3 (3.65-5.03) 09/04/17 06:16 Hgb 12.9 gm/dl (11.8-15.2) 09/04/17 06:16 Hct 38.6 % (35.5-45.6) 09/04/17 06:16 MCV 88 fl (84-94) 09/04/17 06:16 MCH 29 pg (28-32) 09/04/17 06:16 MCHC 33 % (32-34) 09/04/17 06:16 RDW 13.1 % (13.2-15.2) L 09/04/17 06:16 Plt Count 235 K/mm3 (140-440) 09/04/17 06:16 Lymph % (Auto) 41.2 % (13.4-35.0) H 09/03/17 08:37 [place] % (Auto) 13.5 % (0.0-7.3) H 09/03/17 08:37 Eos % (Auto) 5.3 % (0.0-4.3) H 09/03/17 08:37 Baso % (Auto) 1.8 % (0.0-1.8) 09/03/17 08:37 Lymph # 1.7 K/mm3 (1.2-5.4) 09/03/17 08:37 [place] # 0.6 K/mm3 (0.0-0.8) 09/03/17 08:37 Eos # 0.2 K/mm3 (0.0-0.4) 09/03/17 08:37 Baso # 0.1 K/mm3 (0.0-0.1) 09/03/17 08:37 Seg Neutrophils % 38.2 % (40.0-70.0) L 09/03/17 08:37 Seg Neutrophils # 1.6 K/mm3 (1.8-7.7) L 09/03/17 08:37 Sodium 142 mmol/L (137-145) 09/04/17 06:16 Potassium 3.3 mmol/L (3.6-5.0) L 09/04/17 06:16 Chloride 102.7 mmol/L (98-107) 09/04/17 06:16 Carbon Dioxide 28 mmol/L (22-30) 09/04/17 06:16 Anion Gap 15 mmol/L 09/04/17 06:16 BUN 5 mg/dL (9-20) L 09/04/17 06:16 Creatinine 0.7 mg/dL (0.8-1.5) L 09/04/17 06:16 Estimated GFR > 60 ml/min 09/04/17 06:16 BUN/Creatinine Ratio 7 % 09/04/17 06:16 Glucose 94 mg/dL (75-100) 09/04/17 06:16 Hemoglobin A1c 5.5 % (4-6) 09/02/17 19:24 Calcium 8.9 mg/dL (8.4-10.2) 09/04/17 06:16 Magnesium 2.40 mg/dL (1.7-2.3) H 09/02/17 05:00 Total Bilirubin 1.80 mg/dL (0.1-1.2) H 09/04/17 06:16 AST 7 units/L (5-40) 09/04/17 06:16 ALT 8 units/L (7-56) 09/04/17 06:16 Alkaline Phosphatase 40 units/L (35-129) 09/04/17 06:16 Total Protein 6.1 g/dL (6.3-8.2) L 09/04/17 06:16 Albumin 3.7 g/dL (3.9-5) L 09/04/17 06:16 Albumin/Globulin Ratio 1.5 % 09/04/17 06:16 Lipase 20 units/L (13-60) 09/02/17 04:34 Urine Color Maureen (Yellow) 09/02/17 08:25 Urine Turbidity Clear (Clear) 09/02/17 08:25 Urine pH 6.0 (5.0-7.0) 09/02/17 08:25 Ur Specific [place] 1.034 (1.003-1.030) H 09/02/17 08:25 Urine Protein 100 mg/dl mg/dL (Negative) 09/02/17 08:25 Urine Glucose (UA) Neg mg/dL (Negative) 09/02/17 08:25 Urine Ketones 20 mg/dL (Negative) 09/02/17 08:25 Urine Blood Neg (Negative) 09/02/17 08:25 Urine Nitrite Neg (Negative) 09/02/17 08:25 Urine Bilirubin Sm (Negative) 09/02/17 08:25 Urine Ictotest Negative (Negative) 09/02/17 08:25 Urine Urobilinogen 4.0 mg/dL (<2.0) 09/02/17 08:25 Ur Leukocyte Esterase Tr (Negative) 09/02/17 08:25 Urine WBC (Auto) 6.0 /HPF (0.0-6.0) 09/02/17 08:25 Urine RBC (Auto) 4.0 /HPF (0.0-6.0) 09/02/17 08:25 Urine Mucus 3+ /HPF 09/02/17 08:25
[2017-09-04] MEDS: DIFLUCAN 200 MG/100 ML BAG IV SCH (16:33)
[2017-09-04] MEDS: HEPARIN SUB-Q SCH ×2 (16:33→23:30)
[2017-09-05] MEDS: KCL 10MEQ/100ML 10 MEQ/100 ML BAG IV SCH (01:38)
[2017-09-05] MEDS: D5NS 1,000 ML IV SCH (01:55)
[2017-09-05 06:30] LABS: Hematocrit 38.9 % (35.5-45.6); Hemoglobin 12.8 gm/dl (11.8-15.2); Mean Corpuscular HGB Conc 33 % (32-34); Mean Corpuscular Hemoglobin 29 pg (28-32); Mean Corpuscular Volume 88 fl (84-94); Platelet Count 233 K/mm3 (140-440); Red Blood Count 4.45 M/mm3 (3.65-5.03); Red Cell Distribution Width 13.3 % (13.2-15.2)
[2017-09-05 06:48] LABS: BUN/Creatinine Ratio 10; Blood Urea Nitrogen 6 mg/dL (9-20); Hemolysis Index 6
[2017-09-05] MEDS ORDERED: PROTONIX PO SCH (10:00)
[2017-09-05] MEDS: DIFLUCAN 200 MG/100 ML BAG IV SCH (10:59)
--- NOTE | 2017-09-05 11:13 | Progress Note ---
Assessment and Plan Assessment and plan: Intractable nausea and vomiting, Etiology may be due too esophagitis or gall bladder disease Zofran iv prn Esophagitis, likely adri. EGD completed on 09/04/17 shows esophagitis, likely adri. Continue Fluconazole and Protonix I discussed with patient. Will obtain HIV testing-he consents to HIV testing Biliary diskinesia on HIDA scan. Await surgical consultation. Hypokalemia. Improved. Dehydration. Continue iv fluid D5NS at 100ml/hr Full code status History Interval history: Patient's symptoms have improved. Patient likely tolerating by mouth. Hospitalist Physical - Constitutional Vitals: Temp Pulse Resp BP Pulse Ox 98.5 F 70 19 102/51 99 09/05/17 07:26 09/05/17 07:26 09/05/17 07:26 09/05/17 07:26 09/05/17 07:26 General appearance: Present: no acute distress, well-nourished - EENT Eyes: Present: PERRL, EOM intact ENT: hearing intact, clear oral mucosa, dentition normal - Neck Neck: Present: supple, normal ROM - Respiratory Respiratory effort: normal Respiratory: bilateral: CTA - Cardiovascular Rhythm: regular Heart Sounds: Present: S1 & S2. Absent: gallop, rub - Extremities Extremities: no ischemia, No edema, Full ROM - Abdominal General gastrointestinal: soft, non-tender, non-distended, normal bowel sounds - Integumentary Integumentary: Present: clear, warm, dry - Neurologic Neurologic: CNII-XII intact, moves all extremities Results - Labs CBC & Chem 7: 09/05/17 05:57 09/05/17 05:57 Labs: Laboratory Last Values WBC 4.7 K/mm3 (4.5-11.0) 09/05/17 05:57 RBC 4.45 M/mm3 (3.65-5.03) 09/05/17 05:57 Hgb 12.8 gm/dl (11.8-15.2) 09/05/17 05:57 Hct 38.9 % (35.5-45.6) 09/05/17 05:57 MCV 88 fl (84-94) 09/05/17 05:57 MCH 29 pg (28-32) 09/05/17 05:57 MCHC 33 % (32-34) 09/05/17 05:57 RDW 13.3 % (13.2-15.2) 09/05/17 05:57 Plt Count 233 K/mm3 (140-440) 09/05/17 05:57 Lymph % (Auto) 41.2 % (13.4-35.0) H 09/03/17 08:37 [place] % (Auto) 13.5 % (0.0-7.3) H 09/03/17 08:37 Eos % (Auto) 5.3 % (0.0-4.3) H 09/03/17 08:37 Baso % (Auto) 1.8 % (0.0-1.8) 09/03/17 08:37 Lymph # 1.7 K/mm3 (1.2-5.4) 09/03/17 08:37 [place] # 0.6 K/mm3 (0.0-0.8) 09/03/17 08:37 Eos # 0.2 K/mm3 (0.0-0.4) 09/03/17 08:37 Baso # 0.1 K/mm3 (0.0-0.1) 09/03/17 08:37 Seg Neutrophils % 38.2 % (40.0-70.0) L 09/03/17 08:37 Seg Neutrophils # 1.6 K/mm3 (1.8-7.7) L 09/03/17 08:37 Sodium 144 mmol/L (137-145) 09/05/17 05:57 Potassium 3.5 mmol/L (3.6-5.0) L 09/05/17 05:57 Chloride 104.7 mmol/L (98-107) 09/05/17 05:57 Carbon Dioxide 30 mmol/L (22-30) 09/05/17 05:57 Anion Gap 13 mmol/L 09/05/17 05:57 BUN 6 mg/dL (9-20) L 09/05/17 05:57 Creatinine 0.6 mg/dL (0.8-1.5) L 09/05/17 05:57 Estimated GFR > 60 ml/min 09/05/17 05:57 BUN/Creatinine Ratio 10 % 09/05/17 05:57 Glucose 99 mg/dL (75-100) 09/05/17 05:57 Hemoglobin A1c 5.5 % (4-6) 09/02/17 19:24 Calcium 9.0 mg/dL (8.4-10.2) 09/05/17 05:57 Magnesium 2.40 mg/dL (1.7-2.3) H 09/02/17 05:00 Total Bilirubin 1.80 mg/dL (0.1-1.2) H 09/04/17 06:16 AST 7 units/L (5-40) 09/04/17 06:16 ALT 8 units/L (7-56) 09/04/17 06:16 Alkaline Phosphatase 40 units/L (35-129) 09/04/17 06:16 Total Protein 6.1 g/dL (6.3-8.2) L 09/04/17 06:16 Albumin 3.7 g/dL (3.9-5) L 09/04/17 06:16 Albumin/Globulin Ratio 1.5 % 09/04/17 06:16 Lipase 20 units/L (13-60) 09/02/17 04:34 Urine Color Maureen (Yellow) 09/02/17 08:25 Urine Turbidity Clear (Clear) 09/02/17 08:25 Urine pH 6.0 (5.0-7.0) 09/02/17 08:25 Ur Specific [place] 1.034 (1.003-1.030) H 09/02/17 08:25 Urine Protein 100 mg/dl mg/dL (Negative) 09/02/17 08:25 Urine Glucose (UA) Neg mg/dL (Negative) 09/02/17 08:25 Urine Ketones 20 mg/dL (Negative) 09/02/17 08:25 Urine Blood Neg (Negative) 09/02/17 08:25 Urine Nitrite Neg (Negative) 09/02/17 08:25 Urine Bilirubin Sm (Negative) 09/02/17 08:25 Urine Ictotest Negative (Negative) 09/02/17 08:25 Urine Urobilinogen 4.0 mg/dL (<2.0) 09/02/17 08:25 Ur Leukocyte Esterase Tr (Negative) 09/02/17 08:25 Urine WBC (Auto) 6.0 /HPF (0.0-6.0) 09/02/17 08:25 Urine RBC (Auto) 4.0 /HPF (0.0-6.0) 09/02/17 08:25 Urine Mucus 3+ /HPF 09/02/17 08:25 HIV 1&2 Antibody Rapid Non react (Non React) 09/04/17 16:22 HIV P24 Antigen Non react (Non React) 09/04/17 16:22
--- NOTE | 2017-09-05 11:18 | Discharge Summary ---
Providers - Providers Date of Admission: 09/02/17 12:23 Date of discharge: 09/05/17 Attending physician: VALERIE CHI 09/02/17 19:12 Consult to Physician [CONS] Routine Comment: Consulting Provider: YASMEEN DELA CRUZ Physician Instructions: Reason For Exam: Persistent vomiting 09/05/17 07:10 Consult to Physician [CONS] Routine Comment: Consulting Provider: KADEEM CLEVELAND Physician Instructions: Reason For Exam: Biliary dyskinesia Primary care physician: JACK SPINNER Hospitalization Reason for admission: N/V Condition: Fair Hospital course: Patient is a 22 y/o male with no significant PMH who presented to ED with c/o persistent N/V x 2 weeks after eating a hotdog from . He [place] [facility] [place] abd U/S, CT, and abd X-ray negative. He reported epigastric pain, fever, and recent wt loss associated with symptoms on admission but denied CP, SOB, signs of bleeding, diarrhea, or constipation. Exacerbating factors included PO intake and movement. No alleviating factors. No ill contacts or travel. No NSAID use or previous EGD. The patient was seen by GI consultation and found to have scattered small white plaques throughout the esophagus that were biopsied. 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 Also, Biopsied. EGD was otherwise normal. Patient also underwent HIDA scan which revealed biliary dyskinesia with gallbladder ejection fraction 24%. Patient was seen by surgical consultation who will plan for outpatient follow-up and surgery. Patient will be discharged with prescription for Diflucan for 14 days. Patient also consented for HIV testing prior to discharge which can be followed up by primary care physician. Dedicated discharge time 32 minutes. Disposition: -01 TO HOME OR SELFCARE Time spent for discharge: 32 - Discharge Diagnoses (1) Yani esophagitis Status: Acute (2) Biliary dyskinesia Status: Acute (3) Hypokalemia Status: Acute (4) Intractable nausea and vomiting Status: Acute Qualifiers: Vomiting type: unspecified Qualified Code(s): R11.2 - Nausea with vomiting , unspecified Core Measure Documentation - Palliative Care Palliative Care/ Comfort Measures: Not Applicable - Core Measures Any of the following diagnoses?: none Exam - Constitutional Vitals: Temp Pulse Resp BP Pulse Ox 98.5 F 70 19 102/51 99 09/05/17 07:26 09/05/17 07:26 09/05/17 07:26 09/05/17 07:26 09/05/17 07:26 General appearance: Present: no acute distress, well-nourished - EENT Eyes: Present: PERRL ENT: hearing intact, clear oral mucosa - Neck Neck: Present: supple, normal ROM - Respiratory Respiratory effort: normal Respiratory: bilateral: CTA - Cardiovascular Heart Sounds: Present: S1 & S2. Absent: rub, click - Extremities Extremities: pulses symmetrical, No edema Peripheral Pulses: within normal limits - Abdominal General gastrointestinal: Present: soft, non-tender, non-distended, normal bowel sounds Male genitourinary: Present: normal - Integumentary Integumentary: Present: clear, warm, dry - Musculoskeletal Musculoskeletal: gait normal, strength equal bilaterally - Psychiatric Psychiatric: appropriate mood/affect, intact judgment & insight - Neurologic Neurologic: CNII-XII intact, moves all extremities Plan Activity: advance as tolerated Weight Bearing Status: Full Weight Bearing Diet: regular Follow up with: PRIMARY CAREMD [Primary Care Provider] - 3-5 Days ELISABETH AYOUB MD [Staff Physician] - 7 Days BRIAN CIFUENTES MD [Staff Physician] - 7 Days KADEEM CLEVELAND DO [Staff Physician] - 7 Days Prescriptions: Acetaminophen/Codeine [Tylenol /Codeine # 3 tab] 1 tab PO Q6H PRN #15 tab PRN Reason: Pain Fluconazole [Diflucan TAB] 200 mg PO QDAY #14 tablet Pantoprazole [Protonix TAB] 40 mg PO QDAY #30 tablet
--- NOTE | 2017-09-05 11:30 | Gastroenterology Progress Note ---
<PAOLA ZHANG - Last Filed: 09/05/17 11:32> Assessment and Plan 1.persistent N/V 2.epigastric pain -afebrile -WBC-WNL -CT and abd x-ray negative -s/p EGD that revealed scattered small white plaques throughout esophagus ( likely adri esophagitis), benign exacavated area in antrum, approx 8mm, ( likely pancreatic rest) but otherwise normal -bx results pending- follow up in clinic -HIV serology negative -HIDA scan results consistent with biliary dyskinesia (EF 24%) -etiology- most likely 2/2 biliary dyskinesia -surgery following with plans for outpatient cholecystectomy -clinically, patient's epigastric pain and N/V are improved -tolerating diet -continue diflucan and supportive care -pt okay to be d/c per GI standpoint with outpatient follow up -will sign off, please call if needed Subjective Date of service: 09/05/17 Principal diagnosis: persistent vomiting Interval history: Patient resting in bed w/o acute distress. Reports feeling better with abd pain improved and no N/V. Tolerating diet. Objective - Constitutional Vitals: Temp Pulse Resp BP Pulse Ox 98.5 F 70 19 102/51 99 09/05/17 07:26 09/05/17 07:26 09/05/17 07:26 09/05/17 07:26 09/05/17 07:26 General appearance: no acute distress - Respiratory Respiratory: bilateral: CTA - Cardiovascular Rhythm: regular Heart Sounds: Present: S1 & S2 - Gastrointestinal General gastrointestinal: Present: soft, tender (slight epigastic TTP), normal bowel sounds - Neurologic Neurological: alert and oriented x3 - Labs CBC & Chem 7: 09/05/17 05:57 09/05/17 05:57 Labs: Laboratory Results - last 24 hr 09/04/17 09/05/17 09/05/17 16:22 05:57 05:57 WBC 4.7 RBC 4.45 Hgb 12.8 Hct 38.9 MCV 88 MCH 29 MCHC 33 RDW 13.3 Plt Count 233 Sodium 144 Potassium 3.5 L Chloride 104.7 Carbon Dioxide 30 Anion Gap 13 BUN 6 L Creatinine 0.6 L Estimated GFR > 60 BUN/Creatinine Ratio 10 Glucose 99 Calcium 9.0 HIV 1&2 Antibody Rapid Non react HIV P24 Antigen Non react <ELISABETH AYOUB - Last Filed: 09/05/17 13:58> Assessment and Plan Plans as above. Diflucan for total of 2 wks, at 100 mg/d. Objective - Constitutional Vitals: Temp Pulse Resp BP Pulse Ox 98.5 F 70 19 102/51 99 09/05/17 07:26 09/05/17 07:26 09/05/17 07:26 09/05/17 07:26 09/05/17 07:26 - Labs CBC & Chem 7: 09/05/17 05:57 09/05/17 05:57 Labs: Laboratory Results - last 24 hr 09/04/17 09/05/17 09/05/17 16:22 05:57 05:57 WBC 4.7 RBC 4.45 Hgb 12.8 Hct 38.9 MCV 88 MCH 29 MCHC 33 RDW 13.3 Plt Count 233 Sodium 144 Potassium 3.5 L Chloride 104.7 Carbon Dioxide 30 Anion Gap 13 BUN 6 L Creatinine 0.6 L Estimated GFR > 60 BUN/Creatinine Ratio 10 Glucose 99 Calcium 9.0 HIV 1&2 Antibody Rapid Non react HIV P24 Antigen Non react
--- NOTE | 2017-09-05 12:40 | Consultation ---
History of Present Illness Consult date: 09/05/17 Chief complaint: nausea and vomiting - History of present illness History of present illness: 22-year-old male with no past medical history presented to the emergency room with complaints of nausea and vomiting (nonbloody/nonbilious). The patient states that this is ongoing for the last 2 weeks. He states that this started all of a sudden and was not brought on by any food. He does not know of any inciting factors. He states he get RUQ sharp pains every so often when he stretches but this is not related to his n/v. No f/c, cp, sob. No diarrhea or constipation. Pt underwent EGD this admit which revealed adri esophagitis. Past History Past Medical History: No medical history Past Surgical History: No surgical history Social history: denies: smoking, alcohol abuse Family history: no significant family history Medications and Allergies Allergies Allergy/AdvReac Type Severity Reaction Status Date / Time No Known Allergies Allergy Unverified 06/22/15 18:00 Home Medications Medication Instructions Recorded Confirmed Last Taken Type methOCARBAMOL [Robaxin TAB] 500 mg PO BID #20 tab 06/23/15 09/02/17 Unknown Rx Acetaminophen/Codeine [Tylenol 1 tab PO Q6H PRN #15 tab 09/05/17 Unknown Rx /Codeine # 3 tab] Fluconazole [Diflucan TAB] 200 mg PO QDAY #14 tablet 09/05/17 Unknown Rx Pantoprazole [Protonix TAB] 40 mg PO QDAY #30 tablet 09/05/17 Unknown Rx Active Meds: Active Medications Acetaminophen (Tylenol) 650 mg PO Q4H PRN PRN Reason: Pain MILD(1-3)/Fever >100.5/GREEN Fluconazole (Diflucan) 200 mg PO QDAY [facility] Heparin Sodium (Porcine) (Heparin) 5,000 unit SUB-Q Q8HR EDWEY Last Admin: 09/04/17 23:30 Dose: 5,000 unit Dextrose/Sodium Chloride (D5ns) 1,000 mls @ 100 mls/hr IV DIRECT [facility] Last Admin: 09/05/17 01:55 Dose: 100 mls/hr Lorazepam (Ativan) 0.5 mg IV Q8H PRN PRN Reason: Nausea Ondansetron HCl (Zofran) 4 mg IV Q3H PRN PRN Reason: Nausea And Vomiting Last Admin: 09/03/17 09:48 Dose: 4 mg Pantoprazole Sodium (Protonix) 40 mg PO QDAY [facility] Last Admin: 09/05/17 09:35 Dose: 40 mg Promethazine HCl (Phenergan) 25 mg MA Q6H PRN PRN Reason: Nausea And Vomiting Sodium Chloride (Sodium Chloride Flush Syringe 10 Ml) 10 ml IV BID [facility] Last Admin: 09/04/17 23:32 Dose: 10 ml Sodium Chloride (Sodium Chloride Flush Syringe 10 Ml) 10 ml IV PRN PRN PRN Reason: LINE FLUSH Review of Systems All systems: negative (10 pt ROS performed and negative except for that listed in HPI) Exam Vital Signs Temp Pulse Resp BP Pulse Ox 98.2 F 117 H 18 125/87 100 09/02/17 04:07 09/02/17 04:07 09/02/17 04:07 09/02/17 04:07 09/02/17 04:07 Narrative exam: Gen: AAOx3. NAD ENT: no scleral icterus or conjunctival pallor CV: s1, S2+ Resp: even and unlabored Abd: soft, NT, ND. no r/r/g Ext; no c/c/e Results - Labs 09/05/17 05:57 09/05/17 05:57 Abnormal lab results 09/05/17 Range/Units 05:57 Potassium 3.5 L (3.6-5.0) mmol/L BUN 6 L (9-20) mg/dL Creatinine 0.6 L (0.8-1.5) mg/dL Diabetes panel 09/05/17 Range/Units 05:57 Sodium 144 (137-145) mmol/L Potassium 3.5 L (3.6-5.0) mmol/L Chloride 104.7 (98-107) mmol/L Carbon Dioxide 30 (22-30) mmol/L BUN 6 L (9-20) mg/dL Creatinine 0.6 L (0.8-1.5) mg/dL Glucose 99 (75-100) mg/dL Calcium 9.0 (8.4-10.2) mg/dL Calcium panel 09/05/17 Range/Units 05:57 Calcium 9.0 (8.4-10.2) mg/dL Pituitary panel 09/05/17 Range/Units 05:57 Sodium 144 (137-145) mmol/L Potassium 3.5 L (3.6-5.0) mmol/L Chloride 104.7 (98-107) mmol/L Carbon Dioxide 30 (22-30) mmol/L BUN 6 L (9-20) mg/dL Creatinine 0.6 L (0.8-1.5) mg/dL Glucose 99 (75-100) mg/dL Calcium 9.0 (8.4-10.2) mg/dL Adrenal panel 09/05/17 Range/Units 05:57 Sodium 144 (137-145) mmol/L Potassium 3.5 L (3.6-5.0) mmol/L Chloride 104.7 (98-107) mmol/L Carbon Dioxide 30 (22-30) mmol/L BUN 6 L (9-20) mg/dL Creatinine 0.6 L (0.8-1.5) mg/dL Glucose 99 (75-100) mg/dL Calcium 9.0 (8.4-10.2) mg/dL - Imaging CT scan - abdomen: report reviewed, image reviewed CT scan - pelvis: report reviewed, image reviewed Additional studies: HIDA scan with EF Assessment and Plan 22 yo M with n/v, biliary dyskinesia, Gallbladder EF 24% Plan: 1. Nausea and vomiting resolved and patient tolerating regular diet. Symptoms likely related to biliary dyskinesia 2. patient may be discharged and follow up in surgery office next week to schedule elective cholecystectomy. The patient is agreeable to surgery. 3. PPI and treatment of adri esophagitis per GI D/W Dr. Smith Thank you for this consultation, please call with questions or concerns.
[2017-09-05 14:46] VITALS: BP 129/80
[2017-09-06] MEDS ORDERED: DIFLUCAN PO SCH (10:00)
== END 2017-09-05 14:55 | disposition home or self-care (01) | DRG 370 ==
LOC: ED 03:46 → 3A 12:23
PROVIDERS: ADMIT Internal Medicine; ATTEND Hospitalist
PROC: 0DB58ZX Excision of Esophagus, Via Natural or Artificial Opening Endoscopic, Diagnostic (ICD-10-PCS; principal; 2017-09-04)
PROC: 0DB68ZX Excision of Stomach, Via Natural or Artificial Opening Endoscopic, Diagnostic (ICD-10-PCS; 2017-09-04)
DX: B37.81 Candidal esophagitis (principal); E86.0 Dehydration; K29.00 Acute gastritis without bleeding; E87.6 Hypokalemia; K82.8 Other specified diseases of gallbladder
CPT/HCPCS: 36415; 74019; 74176; 78227; 80048; 80053; 81001; 83036; 83690; 83735; 85025; 85027; 87806; 88305; 88312; 88342; 93005; 93010; 96361; 96374; 96375; A9537; C9113; J1450; J1644; J2250; J2405; J2704; J2765; J2805; J3480; J7030; J7042